=== PATIENT | male | born 1975 | race African-American/Black ===

== ENCOUNTER 2016-09-15 05:46 | Emergency (ER) | payer MEDICAID ==
[~2016-09-15] VITALS: Ht 185.4 cm; Wt 99.8 kg
[~2016-09-15 05:46] MED LIST: ATIVAN0.5 MG ORAL
[2016-09-15] MEDS ORDERED: Thiamine HCl 100 MG in D5W 50 ML IVPB SCH (06:00)
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
[2016-09-15] MEDS ORDERED: Thiamine HCl 100mg/ml Inj IM STA (06:23)
[2016-09-15 06:26] VITALS: BP 120/66
[2016-09-15 08:00] VITALS: BP 119/83
[2016-09-15] MEDS ORDERED: LORazepam 1mg tab ORAL ONE (08:30)
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
[2016-09-15 08:56] LABS: BASOPHILS % (AUTO) 1.2 % (0.0-2.0); EOSINOPHILS % (AUTO) 0.8 % (0.0-3.0); LYMPHOCYTES % (AUTO) 33.3 % (20.0-45.0); MEAN CORPUSCULAR HEMOGLOBIN 35.3 PG (27.0-31.0); MEAN CORPUSCULAR HGB CONC 37.5 G/DL (32.0-36.0); MEAN CORPUSCULAR VOLUME 94 FL (80-99); MEAN PLATELET VOLUME 8.2 FL (6.5-10.1); MONOCYTES % (AUTO) 6.5 % (1.0-10.0); NEUTROPHILS % (AUTO) 58.2 % (45.0-75.0); PLATELET COUNT 200 K/UL (150-450); RED BLOOD COUNT 3.93 M/UL (4.70-6.10); RED CELL DISTRIBUTION WIDTH 16.7 % (11.6-14.8); WHITE BLOOD COUNT 5.9 K/UL (4.8-10.8)
[2016-09-15 09:27] LABS: ACETAMINOPHEN < 10 ug/mL (10-30); ALBUMIN/GLOBULIN RATIO 0.8 (1.0-2.7); ALCOHOL 266 mg/dL; ANION GAP 16 (5-15); CALCIUM 8.1 mg/dL (8.6-10.2); CARBON DIOXIDE 24 mEQ/L (20-30); CHLORIDE 98 mEQ/L (98-107); GLOMERULAR FILTRATION RATE > 60 mL/min (>60); HEMOLYSIS 93; POTASSIUM 3.9 mEQ/L (3.4-4.9); SODIUM 138 mEQ/L (135-145); TOTAL PROTEIN 6.7 g/dL (6.6-8.7)
[2016-09-15 09:39] LABS: ALANINE AMINOTRANSFERASE 216 U/L (3-41); ASPARTATE AMINO TRANSFERASE 285 U/L (5-40)
[2016-09-15 10:03] LABS: BILIRUBIN,DIRECT 0.5 mg/dL (0.1-0.3)
[2016-09-15 10:30] VITALS: BP 117/80
[2016-09-15 10:43] LABS: APPEARANCE,URINE CLEAR; KETONES,URINE NEGATIVE (NEGATIVE); LEUKOCYTE ESTERASE ,URINE NEGATIVE (NEGATIVE); NITRITE,URINE NEGATIVE (NEGATIVE); PH,URINE 7 (4.5-8.0); PROTEIN,URINE 1+ (NEGATIVE); UROBILINOGEN,URINE 1 MG/DL (0.0-1.0)
[2016-09-15 11:01] LABS: BACTERIA,URINE OCCASIONAL /HPF; RBC,URINE 0-2 /HPF (0 - 0); SQUAMOUS EPITHELIAL CELL,UR OCCASIONAL /LPF (NONE/OCC); WBC,URINE 0-2 /HPF (0 - 0)
[2016-09-15 11:10] VITALS: BP 117/80
--- NOTE | 2016-09-15 20:08 | Cardiology Report ---
APPROVED REPORT EKG Measurement Heart [id number] Sinus rhythm Otherwise normal ECG
--- NOTE | 2016-09-17 08:29 | Diagnostic Imaging Report ---
Indications: Altered level of consciousness, altered mental status Technique: Continuous helical CT imaging of the brain was performed with automatic exposure control on a Siemens sensation [address] scanner. Axial and coronal images were reconstructed at 5 mm slice thickness and interval. CTDI volume(s): 70 mGy Total DLP: 1467 mGy-cm Findings: Comparison: 04/10/2012 Diffuse atrophy unchanged.. No evidence of mass or hemorrhage, other attenuation abnormality, mass effect, midline shift, hydrocephalus or increased intracranial pressure. Bone window images are unremarkable. Visualized paranasal sinuses and mastoid air cells are clear. Focal soft tissue increased attenuation and associated calcific versus metallic densities again noted in left frontal scalp. IMPRESSION: No evidence of acute intracranial pathology, unchanged Mild atrophy, prominent for age Nonspecific left frontal scalp changes, may be posttraumatic, unchanged. Written preliminary report placed in PACS 09/15/[address] scanner at [facility] is accredited by the [employer] and the scans are performed using protocols designed to limit radiation exposure to as low as reasonably achievable to attain images of sufficient resolution adequate for diagnostic evaluation.
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
== END 2016-09-15 11:15 | disposition home or self-care (01) ==
LOC: EDBD 05:46 → EMR 06:00 → CANBEDREQ 08:57 → EMR 11:15
DX: F10.129 Alcohol abuse with intoxication, unspecified (principal); S00.11XA Contusion of right eyelid and periocular area, initial encounter; S50.311A Abrasion of right elbow, initial encounter; Y04.0XXA Assault by unarmed brawl or fight, initial encounter; Y92.9 Unspecified place or not applicable
CPT/HCPCS: 36415; 70450; 71010; 80053; 80300; 80329; 81003; 82248; 82550; 85025; 93005; 96372; 99284